=== PATIENT | female | born 1975 | race Caucasian/White ===

== ENCOUNTER 2025-07-02 14:41 | Outpatient (CLI) | payer OTHER, SELFPAY ==
--- OUTSIDE RECORDS SUMMARY | 2025-06-02 08:05 | XMS_ITS | Continuity of Care Document ---
Author Organization [employer] [place] Address [address] [place] [address] Phone Care Team Providers Care Irs Agent Name Role Phone Ting Pulido DO Unavailable Unavailable Allergies, Adverse Reactions, Alerts Substance Reaction Status Criticality No Known Allergies Active No Inform ation Medications Medication Instructions Dosage Effective Dates (start - stop) Status Comments Lantus U-100 Insulin 100 unit/mL subcutaneous solution inject 20 units by subcutaneous route daily in the evening - Active Probiotic 10 billion cell capsule spray 1 Capsule by Oral route every day 1 Capsule - Active Trulicity 4.5 mg/0.5 mL subcutaneous pen injector inject (4.5MG) by subcutaneous route every week 4.5 MG - Active metformin ER 500 mg tablet,extended release 24 hr take 1 tablet by oral route 2 times every day with the evening meal 500 MG - Active DexMetis [employer] G7 Sensor device check glucose levels QID before meals and at bedtime; change sensor every 10 days rotating sites - Active Humalog KwikPen (U-100) Insulin 100 unit/mL subcutaneous inject insulin TID per sliding scale - Active omeprazole 40 mg capsule,delayed release take 1 capsule by oral route every day before a meal 40 MG - Active Procedures Procedure Date MED LIST DOCD IN [facility] OFFICE [id number] MED LIST DOCD IN [facility] OFFICE [id number] GENERAL HEALTH PANEL FERRITIN LEVEL HEMOGLOBIN A1C HGA1C, GLYCO IRON (FE), TOTAL TIBC, & % SATURATION LIPID PANEL MICROALBUMIN, QN (URINE) CREATININE, (U-R) ROUTINE VENIPUNCTURE [place] OFFICE [id number] Brief Emotional/Behavioral A ssessment, With Scoring/Doct, Per Stndrd Instrument OFFICE [id number] Brief Emotional/Behavioral A ssessment, With Scoring/Doct, Per Stndrd Instrument OFFICE [id number] CBC, INC PLATELETS AND DIFFERENTIAL COMPREHEN METABOLIC PANEL CMP CREATINE KINASE, TOTAL (CPK,CK) 024 FERRITIN LEVEL FOLIC ACID (S) (FOLATE) HEMOGLOBIN A1C HGA1C, GLYCO IRON (FE), TOTAL TIBC, & % SATURATION VITAMIN B12 (SERUM) ROUTINE VENIPUNCTURE [place] OFFICE [id number] GENERAL HEALTH PANEL HEMOGLOBIN A1C HGA1C, GLYCO LIPID PANEL MICROALBUMIN, QN (URINE) CREATININE, (U-R) PARATHYROID HORMONE (PTH) URINALYSIS, REFLEX (UA) Brief Emotional/Behavioral A ssessment, With Scoring/Doct, Per Stndrd Instrument Brief Emotional/Behavioral A ssessment, With Scoring/Doct, Per Stndrd Instrument ROUTINE VENIPUNCTURE [place] OFFICE [id number] Advance Directives Directive Yes / No Effective Date File Name Life Support Not Answered N/A N/A Intubation Not Answered N/A N/A Antibiotics Not Answered N/A N/A IV Fluid Support Not Answered N/A N/A Tube Feed Not Answered N/A N/A Other Directive N/A N/A WARNING:The information contained in this section is historical and is provided for information only and does not constitute a legal document or any assurance that the information is still accurate. Please verify the information with the sam of the legal document before using it for clinical purposes. Encounters Encounter Description Practice Location Reason(s) For Visit Diagnoses Date Provider Providers Copied on Encounter [facility], [address], [place], [place], [id number] , tel: [phone] [facility] No Information 5 Tess Maguire. [address] [place] [address], [id number] , [place]. tel: [phone] OFFICE NXOEW-KWZ-GS TAILED [facility], [address], [place], [place], [id number] , tel: [phone] [facility] 4-6 mo appt (chief complaint)C hronic Conditions (chief complaint)c hronic conditions (chief complaint) Body mass index [BMI] 27.0-27.9, adultType 2 diabetes mellitus with unspecified complicationsSupra ventricular tachycardia, unspecifiedEncount er for screening mammogram for malignant neoplasm of breast 5 Sergo Garcia. [address] [place] [address], [id number] , [place]. tel: [phone] Referring Provider: Ting Min, [address] [place] [address], [address] . tel:[phone] OFFICE LDTUO-KWZ-KU PANDED [facility], [address], [place], [place], [address] , tel: [phone] [facility] acute visit (chief complaint) Body mass index [BMI] 26.0-26.9, adultTachycardiaDi zziness 5 Sergo Garcia. [address] [place] [address], [id number] , [place]. tel: [phone] Referring Provider: Ting Min, [address] [place] [address], [address] . tel:[phone] [facility], [address], [place], [place], [address] , [place] tel: [phone] [facility] No Information 0 Kyrie Juarez. [address] [address], [place], [place], [id number] , [place]. tel: [phone] Referring Provider: Ting Min, [address] [place] [address], [address] . tel:[phone] OFFICE SZJRD-EJH-CN [facility], [address], [place], [place], [id number] , [place] tel: [phone] [facility] 4 month appt (chief complaint)C hronic Conditions (chief complaint) Body mass index [BMI] 26.0-26.9, adultType 2 diabetes mellitus with unspecified complicationsLong term (current) use of insulinHyperlipide marissa, unspecifiedMajor depressive disorder, recurrent, mildAnemia, unspecified Mar-0 5 Tess Maguire. [address] [place] [address], [id number] , [place]. tel: [phone] Referring Provider: Ting Min, [address] [place] [address], [address] . tel:[phone] OFFICE JUCUA-QBT-FF [facility], [address], [place], [place], [id number] , [place] tel: [phone] [facility] 2 month appt (chief complaint)C hronic Conditions (chief complaint) Body mass index [BMI] 28.0-28.9, adultType 2 diabetes mellitus with unspecified complicationsHyper lipidemia, unspecifiedLong term (current) use of insulinMajor depressive disorder, recurrent, mild Nov-0 6- 4 Tess Maguire. [address] [place] [address], [id number] , [place]. tel: [phone] Referring Provider: Ting Min, [address] [place] [address], [address] . tel:[phone] [facility] [address], [place], [place], [id number] , [place] tel: [phone] [facility] 3 month check up (chief complaint)C hronic Conditions (chief complaint) Body mass index [BMI] 29.0-29.9, adultType 2 diabetes mellitus with unspecified complicationsMajor depressive disorder, recurrent, mild Sep-- 4 Sergo Garcia. [address] [place] [address], [id number] , . tel: [phone] Referring Provider: Ting Min, [address] [place] [address], [address] . tel:[phone] [facility], [address], [place], [place], [address] , [place] tel: [phone] [facility] No Information 4 Kyrie Juarez. [address], [id number] , . tel: [phone] Referring Provider: Ting Min, [address] [place] [address], [address] . tel:[phone] OFFICE [id number]-XWJ-CV [facility], [address], [place], [place], [id number] , [place] tel: [phone] [facility] f/u (chief complaint)C hronic Conditions (chief complaint)c hronic conditions (chief complaint) Type 2 diabetes mellitus with unspecified complicationsLong term (current) use of insulinHyperlipide marissa, unspecifiedType 2 diabetes mellitus with diabetic autonomic (poly)neuropathyAn emia, unspecified 4 Tess Maguire. [address] [place] [address], [id number] , [place]. tel: [phone] Referring Provider: Ting Min, [address] [place] [address], [address] . tel:[phone] [facility], [address], [place], [place], [address] , tel: [phone] [facility] No Information 4 Tess Maguire. [address] [place] [address], [id number] , [place]. tel: [phone] [facility], [address], [place], [place], [address] , tel: [phone] [facility] No Information 4 Kyrie Bryantn. [address] [facility], [address] [address], [place], [place], [id number] , . tel: [phone] Referring Provider: Radha Trotter, [address] [place] [address], [address] . tel:[phone] OFFICE [id number]-WHW-WW MP-MED [facility], [address], [place], [place], [id number] , tel: [phone] [facility] new pt (chief complaint) Body mass index [BMI] 25.0-25.9, adultDiabetic gastroparesis associated with type 2 diabetes mellitusGastropare sisOSA (obstructive sleep apnea)GERD without esophagitisMDD (major depressive disorder), recurrent episode, mildChronic kidney disease, unspecified CKD stageEncounter for screening mammogram for malignant neoplasm of breast 4 Sergo Garcia. [address] [place] [address], [id number] , [place]. tel: [phone] Referring Provider: Ting Min, [address] [place] [address], [address] . tel:[phone] Family History Family Member Type Diagnosis Age At Onset No Information Immunizations Vaccine Date Status Comments Fluzone Quad, split virus, 0 .5mL dosage administered Source: Other Provid er Pneumococcal polysaccharide PPV23 adminis tered Source: Other Provider Tdap administered Source: Other P rian Payers Payer name Insurance type Covered constitution party ID Authoriza tion(s) No Information Social History Type Description Quantity Date Captured Comments Alcohol Use Details Unknown Caffeine Use Details Unknown Tobacco Use Status No Information Smoking Status No Information Sex Female Sexual Orientation Straight or heterosexual Gender Identity Female Chief Complaint And Reason For Visit No Information Reason For Referral Reason For Referral No Information Plan Of Treatment Date Type Action Status Goal Dietary management education , guidance, and counseling completed Goal Dietary management education , guidance, and counseling completed Goal Dietary management education , guidance, and counseling completed Goal Dietary management education , guidance, and counseling completed Goal Dietary management education , guidance, and counseling completed Goal Dietary management education , guidance, and counseling completed Goal Dietary management education , guidance, and counseling completed Referral Ordered: 24 to 48 hour Holter electrocardiographic monitoring Appointment date/timeframe: 04/04/2025 ordered Referral Referred To: [facility] [facility] [address] [place], [id number] Ordered: SCREENING MAMMOGRAM (CAD) Appointment date/timeframe: 02/16/2024 ordered History Of Present Illness Encounter Date Complaint History Of Prese nt Illness chronic conditions *See Chronic Conditions HPI Chronic Conditions *See Chronic Conditions HPI 4-6 mo appt 4-6 mo appt:emilybo w hurts off and onneeds a referral for a cardio scheduled 05/31/25 (Dr. 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 Patient denies significant exertion associated with HR elevations. has not been taking her metoprololher body just feels weird like something is going on sometimes are a little dizzydenies syncope, palpations, chest pain, and dyspneaPast appt: n/aFuture appt: n/aAdvance directive: doesn't want forms 4 month appt pt due for:PAP - pt denies recentEye exam - pt [id number] visits:Endocrinology - FebFuture appt:Eye exam - pt unsureVaccinations due:COVID - pt refuseCOVID booster - pt refuse Flu - pt refuseTD - pt denies recentOutstanding referrals:n/ain addition to medication list pt also taking OTC Cinsulin and O-pos supplement.pt reports intermittent right elbow x 3 days. pt states pain radiates towards her right shoulder blade. pt described pain as crampy, and achy Chronic Conditions *See Chronic Conditions HPI Chronic Conditions *See Chronic Conditions HPI 2 month appt pt due for:Adv c are planning - pt does not have LW/POA - pt interested on informationEye exam - Dr Ramirez - pt unsure of datePAP - pt denies [id number] visits:Endocrinology - pt unsure of dateFuture appt:n/aVaccinations due:COVID - pt refusesCOVID booster - pt refusesFlu - pt refusesTDAP - pt denies recentOutstanding referrals:n/a Chronic Conditions *See Chronic Conditions HPI 3 month check up f/u pt due for:Adv c are planning - pt does not have LW/POA - pt not interested on information at this momentPAP - pt verbalized she had one done w/ her last PCP about 1 year agoEye exam - Dr Ramirez - December/JanuaryRecent visits:Endocrinology - Last WednesdayFuture appt:n/aVaccinations due:COVID booster - pt refusesTD - pt denies recentOutstanding referrals:n/a Chronic Conditions *See Chronic Conditions HPI chronic conditions new pt Patient presents to office to establish care as a new patient.Previous PCP: PCP at [facility] patient is and lives at home with her and 2 of 3 children. She has 2 daughters and a son. 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 RobertsOptometrist: Dr. Angelo OV: 2 or 3 months agoAllergies: NKDADiagnoses: DM: diagnosed 1997 after 3rd . h/o gestational DM with all 3 pregnancies. uncontrolled. states last A1c was 10. is compliant with medications but does not check glucose unless she feels bad. is drinking 4-5 sodas a day and eating 1 meals with snacks. states last PCP ordered dexcom but did not complete necessary paperworkGastroparesis: d/t uncontrolled DM. managed by Dr. Roberts. is scheduled for upcoming CT and gastric emptying study. takes dicyclomine sparingly as needed. reports intermittent nausea and vomiting. denies worsening issues after starting Trulicity 1 year agoCKD: has seen Dr. Reyes but states he advised she does not need to continue to follow; had OV this year; denies use of NSAIDs but states she doesn't drink water d/t not liking the tasteOSA: has CPAP but does not wear itMDD: states she is managing with without medications; has taken Prozac and Wellbutrin in the past. denies suicidal and homicidal ideationGERD: managed with pantoprazole. denies dysphagiaSurgeries: D&C 1996, 3 c-sections, breast reductionFamily hxMother: living, lung cancer, depressionFather: d/t MVABrother: DMBrother: prediabetesSister: ovarian cancer w/ metastasis to lungsSister: healthyScreenings:Colorectal screening - 2023 w/ Dr. Ganmmogram: duePap: 2022 - normal w/ PCP. Eye exam - 2022 w/ Dr. Ramierz. wears glassesImmunizations: states she thinks she is up-to-date on everything"Tobacco: noAlcohol: noCaffeine: yes, 4-5 sodasExercise: no Functional Status Date Functional Assessmen t No Information Instructions Date Instruction Additional Infor wu We will send a refer ral to Dr. Duarte for your upcoming appointment Related to Supraventricular tachycardia, unspecified [facility].Follow-up as scheduled Related to Type 2 diabetes mellitus with unspecified complications Giving encouragement to exercise Related to Body mass index (BMI) 27.0-27.9, adult Disease process Dietary management e ducation, guidance, and counseling Related to Body mass index (BMI) 27.0-27.9, adult I will send an order for a heart monitor to [facility] to further evaluate your heart rate and rhythm. Continue to hold your metoprolol until we get results. Please call us if you develop chest pain, palpitations, or shortness of breath.Work on staying well-hydrated Related to Tachycardia as stated above Related to Dizzi ness Dietary management e ducation, guidance, and counseling Related to Body mass index (BMI) 26.0-26.9, adult Giving encouragement to exercise Related to Body mass index (BMI) 26.0-26.9, adult blood counts will be checked Rel ated to Anemia, unspecified continue with the cu rrent medication call me if you feel your depression is getting worse Related to Major depressive disorder, recurrent, mild see above Related to USP (current) use of insulin continue with the cu rrent medicationlevels will be checked Related to Hyperlipidemia, unspecified continue with the cu rrent medicationkeep scheduled follow up with Endocrine Related to Type 2 diabetes mellitus with unspecified complications Prescribed activity/ exercise education Related to Body mass index (BMI) 26.0-26.9, adult Disease process Dietary management e ducation, guidance, and counseling Related to Body mass index (BMI) 26.0-26.9, adult i am going to increa se the fluoxetine to 20 mg dailyI sent a new script [facility] Related to Major depressive disorder, recurrent, mild see above Related to USP (current) use of insulin keep scheduled follo w up with the endocrinologistI will review the old recordsdiscuss the GI side effects you are having with them regarding the metformin and the trulciitydiscuss the farxiga option at your next appointment Related to Type 2 diabetes mellitus with unspecified complications levels will be check edcontinue with the current medication Related to Hyperlipidemia, unspecified Disease process Dietary management e ducation, guidance, and counseling Related to Body mass index (BMI) 28.0-28.9, adult Prescribed activity/ exercise education Related to Body mass index (BMI) 28.0-28.9, adult I sent prescription for Prozac 10 mg which she will take once a day to the pharmacy.Please call the office if your depression worsens prior to next appointment.Follow-up again in 2 months we can evaluate how you are doing with restarting your medication Related to Major depressive disorder, recurrent, mild I sent the increased dose of Trulicity to your pharmacy.Follow up with Dr. Az Menendez as scheduled Related to Type 2 diabetes mellitus with unspecified complications Giving encouragement to exercise Related to Body mass index (BMI) 29.0-29.9, adult Dietary management e ducation, guidance, and counseling Related to Body mass index (BMI) 29.0-29.9, adult Disease process labs will be checked Related to Anemia, unspecified keep scheduled follo w up with endocrine Related to Type 2 diabetes mellitus with unspecified complications continue with the cu rrent medicationlevels will be checked Related to Hyperlipidemia, unspecified continue with the cu rrent insulin regimen Related to terminologist (current) use of insulin I will get the resul ts from Dr. Roberts try smaller meals throughout the Geraldine will discuss with your endocrine regarding the trulicity Related to Type 2 diabetes mellitus with diabetic autonomic (poly)neuropathy Dietary management e ducation, guidance, and counseling Related to Body mass index (BMI) 26.0-26.9, adult Prescribed activity/ exercise education Related to Body mass index (BMI) 26.0-26.9, adult Disease process We will check kidney function today.I do recommend working your water intake even need to add flavoring in order to do so.Continue to avoid NSAIDs such as Advil, Aleve, ibuprofen, and naproxen Related to Chronic kidney disease, unspecified CKD stage You report this is m anaged without medication.Please call us if the depression worsens Related to MDD (major depressive disorder), recurrent episode, mild Continue your pantop razole as prescribed Related to GERD without esophagitis I do recommend using your CPAP to manage this Related to JOSÉ MANUEL (obstructive sleep apnea) This is being manage d by Dr. Roberts.We will request records Related to Gastroparesis Continue your medica tions as prescribed.I will send refills of the metformin, Lantus, and Trulicity to the pharmacy.We will check your A1c again today.Eye exam is up-to-date; We will request a copy from Dr. Ramirez's office.Work on decreasing iron for that intake and increasing your water intake.I will order a Dexcom to see if we can get this approved Related to Diabetic gastroparesis associated with type 2 diabetes mellitus Dietary management e ducation, guidance, and counseling Related to Body mass index (BMI) 25.0-25.9, adult Giving encouragement to exercise Related to Body mass index (BMI) 25.0-25.9, adult Assessments Type Assessment Date No Information Patient Care Teams Name Effective Dates (start - stop) Status Members No Information
--- NOTE | 2025-07-02 14:58 | ECHO_ITS ---
Patient Info Name: Miguelina Conde Age: 50 years : 1975 Gender: Female Ht: 60 in Wt: 145 lbs BSA: 1.69 m2 HR: 66 bpm BP: 90 / 76 mmHg Heart Rhythm: Sinus Rhythm Technical Quality: Good Exam Date: 07/02/2025 3:10 PM Patient Status: O Admit Date: 07/02/2025 Exam Type: CA echo doppler color flow Complete two-dimensional, color flow and Doppler transthoracic echocardiogram is performed. Spinning Lathe Operator: Jocelin Morgan Attending Provider: Daniel Duarte DO Summary 1. Complete two-dimensional, color flow and Doppler transthoracic echocardiogram is performed. 2. Left ventricular chamber dimension is normal. 3. Left ventricular systolic function is mildly globally reduced, estimated at 45-50. 4. The left ventricular diastolic function is grade I diastolic dysfunction. 5. E/e' 6 is not elevated. 6. There is trace mitral valve regurgitation. 7. There is trace tricuspid valve regurgitation. 8. No pulmonary hypertension, estimated pulmonary arterial systolic pressure is 21 mmHg. 9. There is trace pulmonic regurgitation. Left Ventricle E/e' 6 is not elevated. Left ventricular chamber dimension is normal. Left ventricular systolic function is mildly globally reduced, estimated at 45-50. The left ventricular diastolic function is grade I diastolic dysfunction. Right Ventricle Right ventricular chamber dimension is normal. Right ventricular systolic function is normal and with normal TAPSE 2.3 cm. Left Atria Left atrial chamber dimension is normal. Right Atria Right atrial chamber dimension is normal. Aortic Valve The aortic valve is trileaflet. There is no aortic valve stenosis. There is no aortic valve regurgitation. Pulmonic Valve There is trace pulmonic regurgitation. Mitral Valve There is no mitral valve stenosis. There is trace mitral valve regurgitation. Tricuspid Valve There is trace tricuspid valve regurgitation. No pulmonary hypertension, estimated pulmonary arterial systolic pressure is 21 mmHg. Pericardium/Pleural There is no pericardial effusion. Inferior Vena Cava Normal inferior vena cava with >50% collapse upon inspiration consistent with normal right atrial pressure, 5 mmHg. Aorta The aortic root size at the sinus of Valsalva is normal. Left Ventricular Outflow Tract Name Value Normal LVOT 2D LVOT Diameter 2.0 cm LVOT Doppler LVOT Peak Velocity 68 cm/s LVOT Peak Gradient 2 mmHg LVOT Mean Gradient 1 mmHg LVOT VTI 11 cm LVOT VTI/AV VTI Ratio 0.7 LVOT Stroke Volume 34 ml LVOT CO 3.0 l/min LVOT CI 1.8 l/min/m2 Pulmonic Valve Name Value Normal RVOT Doppler RVOT Peak Velocity 62 cm/s RVOT Peak Gradient 2 mmHg PV Doppler PV Peak Velocity 68 cm/s PV Peak Gradient 2 mmHg Mitral Valve Name Value Normal MV Diastolic Function MV E Peak Velocity 69 cm/s MV A Peak Velocity 94 cm/s MV E/A 0.7 MV Decel Time (PW) 197 ms MV Annular TDI MV E/e' (Septal) 6.6 MV E/e' (Lateral) 7.2 MV E/e' (Average) 6.9 Tricuspid Valve Name Value Normal TV Regurgitation Doppler TR Peak Velocity 201 cm/s TR Peak Gradient 16 mmHg Estimated PAP/RSVP RA Pressure 5 mmHg <=5 PA Systolic Pressure 21 mmHg <36 RV Systolic Pressure 21 mmHg <36 TV Annular TDI TV Lateral Radha s' Velocity 9.2 cm/s >=9.5 Aorta Name Value Normal Ascending Aorta Ao Root Diameter (MM) 2.8 cm Ao Root Diam Index (MM) 1.6 cm/m2 Aortic Valve Name Value Normal AV Doppler AV Peak Velocity 97 cm/s AV Peak Gradient 4 mmHg AV Mean Gradient 2 mmHg AV VTI 15 cm AV Area (Cont Eq VTI) 2.2 cm2 >=3.0 AV Area (Cont Eq Polo) 2.1 cm2 AV DI (Polo) 0.70 AV Regurgitation 2D LVOT Area 3.0 cm2 Ventricles Name Value Normal LV Dimensions 2D/MM IVS Diastolic Thickness (2D) 0.9 cm 0.6-1.0 LVID Diastole (2D) 4.7 cm 3.8-5.2 LVIW Diastolic Thickness (2D) 0.9 cm 0.6-0.9 LVID Systole (2D) 3.7 cm 2.2-3.5 LVOT Diameter 2.0 cm LV Mass (2D Cubed) 144.80 g 67.00-162.00 LV Mass Index (2D Cubed) 86 g/m2 43-95 Relative Wall Thickness (2D) 0.40 <=0.42 LV Fractional Shortening/Ejection Fraction 2D/MM LV Fractional Shortening (2D) 23 % 27-45 LV EF (2D Teichholz) 46 % LV Diastolic Volume (4C MOD) 105 ml LV EF (4C MOD) 43 % LV Diastolic Volume (2C MOD) 105 ml LV EF (2C MOD) 44 % LV Diastolic Volume (BP MOD) 107 ml 46-106 LV Diastolic Volume Index (BP MOD) 64 ml/m2 29-61 LV Systolic Volume (BP MOD) 60 ml 14-42 LV Systolic Volume Index (BP MOD) 35 ml/m2 8-24 LV EF (BP MOD) 44 % 54-74 LV Diastolic Length (4C) 8.4 cm LV Systolic Length (4C) 7.7 cm LV Stroke Volume (4C MOD) 45 ml Atria Name Value Normal LA Dimensions LA Dimension (MM) 3.1 cm 2.7-3.8 LA Volume (4C A-L) 46 ml LA Volume (BP A-L) 40 ml RA Dimensions RA Area (4C) 14.8 cm2 <=18.0 Report Signatures
--- OUTSIDE RECORDS SUMMARY | 2025-07-02 14:58 | XMS_ITS | Clinical Summary ---
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 Name Role Phone Ting Pulido DO Primary Care Provider [phone] Allergies No known active allergies Medications FLUoxetine (PROzac) 40 mg capsule Take 1 capsule (40 mg total) by mouth daily Taking 10mg 07/19/[address] (PROTONIX) 40 mg EC tablet Take 1 tablet (40 mg total) by mouth 2 (two) times a day 10/07/20 22 Active Sure Comfort Pen Needle 31 gauge x 02/23 needle 09/08/20 22 Active famotidine (PEPCID) 40 mg tablet 07/21/20 23 Active metoprolol XL (TOPROL-XL) 25 mg extended release tablet 07/26/20 23 Active dicyclomine (BENTYL) 10 mg capsule TAKE 1 CAPSULE BY MOUTH FOUR TIMES DAILY NEEDED FOR ABDOMINAL PAIN 11/22/19 24 Active lidocaine jelly (XYLOCAINE) 2 % Apply topically 2 (two) times a day 30 mL 01/19/20 24 Active OMEPRAZOLE ORAL Take 40 mg by mouth 07/03/20 24 025 Active lancets (freestyle) 28 gauge misc Active FreeStyle Lite Strips stripIndications:T ype 2 diabetes mellitus with stage 3b chronic kidney disease, with long-term current use of insulin (HCC) Use to test glucose TID with sensor failure, when off sensor or with abnormal sensor readings 200 strip 3 04/20/20 25 Active metFORMIN XR (GLUCOPHAGE XR) 500 mg 24 hr tabletIndications: Type 2 diabetes mellitus with stage 3b chronic kidney disease, with long-term current use of insulin ([facility]) Take 2 tablets (1,000 mg total) by mouth daily with breakfast 180 tablet 04/24/20 Active LANTUS 100 unit/mL (3 mL) pen for injectionIndicatio ns:Type 2 diabetes mellitus with stage 3b chronic kidney disease, with long-term current use of insulin ([facility]) Inject 20 units at bedtime 30 mL 04/24/20 Active dulaglutide (TRULICITY) 4.5 mg/0.5 mL pen injectorIndication s:Type 2 diabetes mellitus with stage 3b chronic kidney disease, with long-term current use of insulin ([facility]) Inject 0.5 mL (4.5 mg total) under the skin every 7 days 6 mL 04/24/20 Active Dexcom G7 Sensor deviceIndications: Type 2 diabetes mellitus with stage 3b chronic kidney disease, with long-term current use of insulin ([facility]) Use to continually monitor glucose, change sensor every 10 days 9 each 04/24/20 Active atorvastatin (LIPITOR) 20 mg tabletIndications: Type 2 diabetes mellitus with stage 3b chronic kidney disease, with long-term current use of insulin ([facility]),Mixed hyperlipidemia Take 1 tablet (20 mg total) by mouth daily 90 tablet 04/24/20 Active cholecalciferol (VITAMIN D-3) 2000 unit tabletIndications: Vitamin D deficiency Take 1 tablet (2,000 Units total) by mouth daily 90 tablet 04/24/20 Active Active Problems Problem Noted Date Diagnosed Date Vitamin D deficiency 07/17/2024 Type 2 diabetes mellitus wit h stage 3b chronic kidney disease, with long-term current use of insulin 02/20/2024 Migraine headache 01/13/2024 Overview (01/13/2024): Pt reports good results with the maxalt but does not like the taste of the medicine Labial cyst 01/13/2024 JOSÉ MANUEL (obstructive sleep apnea) 11/03/2022 Assessment & Plan (11/03/2022 11:57 AM APPLIED RESEARCHER): The patient diagnosed with obstructive sleep apnea in 2015 and her CPAP unit is set at 7 cm water pressure. I will send an order over for new supplies to [facility] and the patient will follow-up with me in 3 months. Irritable bowel syndrome 04/06/2021 Overview (06/15/2023): diarrhea predominant, started on xifaxan by GI Diabetic retinopathy 12/27/2020 Overview (06/15/2023): Mild nonproliferative diabetic retinopathy without macular edema, left eye on 11/14/20. Negative exam in 2022. Renal osteodystrophy 09/22/2020 Overview (06/15/2023): follows with Dr. Dickey Diabetic nephropathy associnoni mack with type 2 diabetes mellitus 08/19/2020 Essential hypertension 08/19/2020 Stage 3b chronic kidney disease 08/19/2020 Diabetic gastroparesis 08/02/2020 Allergic rhinitis 07/18/2020 Gastroesophageal reflux disease 07/18/2020 Hiatal hernia 07/18/2020 Hyperlipidemia 07/18/2020 Insomnia 07/18/2020 Mixed anxiety and depressive disorder 07/18/2020 Chronic kidney disease 07/18/2020 Resolved Problems Problem Noted Date Diagnosed Date Resolved Date Diabetes mellitus 08/03/2001 02/20/2024 Overview (06/15/2023): type 2 Encounters Date Type Department Care Team Description 04/24/2025 11:20 AM CDT Telemedicine [facility] Medicine Endocrinology Metabolism and Lipid [facility] Medical Office Building [address] [place] [address] Michael Watson MD Type 2 diabetes mellitus with stage 3b chronic kidney disease, with long-term current use of insulin (HCC); Vitamin D deficiency; Mixed hyperlipidemia from Last 3 Months Immunizations Immunization Administration Dates Next Due Hep A / Hep B 01/07/2017, 6,07/01/2016,01/07 Influenza, Quadrivalent, Jennifer l Culture-based MDCK, Preservative Free, Antibiotic Free, Intramuscular 09/01/2017,08/26/2015 Influenza, Quadrivalent, Spl it, Intramuscular 07/18/2021,07/31/2016,08/28/2014 Influenza, Quadrivalent, Spl it, Preservative Free, Intramuscular 07/18/2020,09/01/2017,08/26/2015 Influenza, Split 07/31/2009,10/06/2007 Influenza, Trivalent, Cell Culture-based MDCK, Preservative Free, Antibiotic Free, Intramuscular 09/01/2017,08/26/2015 Influenza, Trivalent, IM (MDV) 10/17/2012 MMR 08/10/2017,07/01/2016 PPD TEST 03/13/2019,08/10/2017 Pneumococcal Polysaccharide PPV23 09/23/2020,04/2013,04/16/2009 Tdap 07/22/2023,12/29/2012 Surgical History Surgery Date Site/Laterality Comments REDUCTION MAMMAPLASTY SECTION Medical History Medical History Date Comments Diabetes mellitus (HCC) Kidney disease Family History Medical History Relation Name Comments Cataracts Mother Lung cancer Mother Ovarian cancer Sister Breast cancer Neg Hx Uterine cancer Neg Hx Relation Name Status Comments Father Mother Alive Sister Social History Tobacco Use Types Packs/Day Years Used Date Smoking Tobacco: Never Smokeless Tobacco: Never AUDIT-C Answer Date Recorded Q1: How often do you have a drink containing alcohol? Never 11/27/2024 Q2: How many drinks containi ng alcohol do you have on a typical day when you are drinking? Patient does not drink Q3: How often do you have si x or more drinks on one occasion? Never 11/27/2024 Comments No Sex and Gender Information Value Date Recorded Sex Assigned at Not on file Legal Sex Female 2:37 PM APPLIED RESEARCHER Gender Identity Not on file Sexual Orientation Not on file Obstetrics History Para Term AB IAB SAB Ectopic Multiple Livin g Live Births 10 4 4 6 6 4 4 Date Outcome GA Total Labor Labor/2nd/3rd Weight Sex Type Anes PTL Shanae A1 A5 Name Clin Term CS-LT ranv Living Term CS-LT ranv Living Term CS-LT ranv Living Term Vag-S pont Living SAB SAB SAB SAB SAB SAB Last Filed Vital Signs Vital Sign Reading Time Taken Comments Blood Pressure 103/69 11/27/2024 3:27 PM APPLIED RESEARCHER Pulse 100 11/27/2024 3:27 PM APPLIED RESEARCHER Temperature 37.1 C (98.7 F) 11/27/2024 3:27 PM APPLIED RESEARCHER Respiratory Rate 18 11/03/2022 11:42 AM APPLIED RESEARCHER Oxygen Saturation 98% 07/17/2024 2:58 PM CDT Inhaled Oxygen Concentration - - Weight 62.4 kg (137 lb 9.6 oz) 11/27/2024 3:27 P M APPLIED RESEARCHER Height 152.4 cm (5') 11/27/2024 3:27 PM APPLIED RESEARCHER Body Mass Index 26.87 11/27/2024 3:27 PM APPLIED RESEARCHER Plan of Treatment Health Maintenance Due Date Last Done Comments Cervical Cancer Screening 1975 Colon Cancer Screening-Colonoscopy 1975 Depression Screening 1975 Hepatitis C Screening 1975 Dilated Eye Exam 1975 Foot Exam 1975 Regular Well Visit/Exam 18-64 1993 Pneumococcal vaccine <65 (2 of 2 - PCV) 09/23/2021 09/23/2020, 10/17/2012, 04/16/2009 Breast Cancer Screening-Mammogram 02/08/2025 02/09/2024, 02/03/2024, 02/03/2024 Hemoglobin A1C 05/27/2025 11/27/2024, 10/04/2024, 04/11/2024, Additional history exists Influenza Vaccine (#1) 2025 1, 07/18/2020, 09/01/2017, Additional history exists Zoster Vaccine (1 of 2) 2025 Albumin Creatinine Ratio, Urine 03/28/2026 5, 04/21/2024 Lipid Panel 03/28/2026 03/28/2025, 04/21/2024 eGFR 03/28/2026 03/28/2025, 08/0 03/2024, 04/21/2024 DTaP/Tdap/Td Vaccine (3 - Td or Tdap) 07/22/2033 07/22/2023, 12/29/2012 Hepatitis B Screening Completed 01/07/2017 , 07/31/2016, 07/01/2016, Additional history exists Procedures Procedure Name Priority Date/Time Associated Diagnosis Comments COMPREHENSIVE METABOLIC PANEL Routine 03/28/2025 12:13 PM CDT Type 2 diabetes mellitus with stage 3b chronic kidney disease, with long-term current use of insulin (HCC) LIPID PANEL Routine 03/28/2025 12:13 PM CDT Type 2 diabetes mellitus with stage 3b chronic kidney disease, with long-term current use of insulin (HCC) ALBUMIN CREATININE RATIO, URINE Routine 03/28/2025 12:13 PM CDT Type 2 diabetes mellitus with stage 3b chronic kidney disease, with long-term current use of insulin (HCC) POCT HEMOGLOBIN A1C Routine 11/27/2024 3 :34 PM APPLIED RESEARCHER Type 2 diabetes mellitus with stage 3b chronic kidney disease, with long-term current use of insulin (HCC) from Last 3 Months or Most Recently Relevant to Health Maintenance Results * Albumin Creatinine Ratio, Urine (03/28/2025 12:13 PM CDT) Creatinine ur 73.4 Not Estab. mg/dL [facility] - 01 Microalbumin, ur 3.5 Not Estab. ug/mL [facility] - 01 Microalbumin/cre at ratio 5 0 - 29 mg/g creat [facility] - 01 Comment: Normal: 0 - 29 Moderately increased: 30 - 300 Severely increased: >300 Urine 03/28/2025 12:1 3 PM CDT 03/28/2025 Narrative [facility] - 03/29/2025 3:10 PM CDT Performed at: [address] [place] [id number] Manufacturing Mechanic: Slade Saab PhD, Phone: [phone] us Michael Watson MD LAB URINE ORDERABLES Final R esult [facility] - 01 * (ABNORMAL) Lipid panel (03/28/2025 12:13 PM CDT) Cholesterol 198 100 - 199 mg/dL [facility] - 01 Triglycerides 323(H) 0 - 149 mg/dL [facility] - 01 HDL Cholesterol 40 >39 mg/dL [facility] - 01 VLDL 55(H) 5 - 40 mg/dL [facility] - 01 LDL, calculated 103(H) 0 - 99 mg/dL [facility] - 01 Blood 03/28/2025 12:1 3 PM CDT 03/28/2025 Narrative [facility] - 03/29/2025 7:09 AM CDT Performed at: 01 - [address] [id number] Manufacturing Mechanic: Slade Saab PhD, Phone: [phone] us Michael Watson MD LAB BLOOD ORDERABLES Final R esult [facility] - 01 * (ABNORMAL) Comprehensive metabolic panel (03/28/2025 12:13 PM CDT) [facility] Glucose 114(H) 70 - 99 mg/dL [facility] - 01 BUN 6 6 - 24 mg/dL [facility] - 01 Creatinine, Serum 1.08(H) 0.57 - 1.00 mg/dL [facility] - 01 eGFR 63 >59 mL/min/1.7 3 [facility] - 01 BUN/creat ratio 6(L) 9 - 23 [facility] - 01 Sodium 136 134 - 144 mmol/L [facility] - 01 Potassium, sr 3.9 3.5 - 5.2 mmol/L [facility] - 01 Chloride 96 96 - 106 mmol/L [facility] - 01 CO2 26 20 - 29 mmol/L [facility] - 01 Calcium 8.7 8.7 - 10.2 mg/dL [facility] - 01 Protein, sr 6.4 6.0 - 8.5 g/dL [facility] - 01 Albumin 4.1 3.9 - 4.9 g/dL [facility] - 01 Globulin, Total 2.3 1.5 - 4.5 g/dL [facility] - 01 Bilirubin, Total 0.4 0.0 - 1.2 mg/dL [facility] - 01 Alk phos 124(H) 44 - 121 IU/L [facility] - 01 AST 16 0 - 40 IU/L [facility] - 01 ALT 7 0 - 32 IU/L [facility] - 01 Blood 03/28/2025 12:1 3 PM CDT 03/28/2025 Narrative [facility] - 03/29/2025 7:09 AM CDT Performed at: - [address] [id number] Manufacturing Mechanic: Slade Saab PhD, Phone: [phone] Michael Watson MD LAB BLOOD ORDERABLES Final R esult [facility] - 01 * POCT hemoglobin A1c (11/27/2024 3:34 PM APPLIED RESEARCHER) [facility] Signature Hemoglobin A1C, POC 6.1 4.0 - 5.6 % Capillary blood 11/27/2024 3 :34 PM APPLIED RESEARCHER Michael Watson MD POINT OF CARE TEST ORDERABLE S Final Result from Last 3 Months or Most Recently Relevant to Health Maintenance Insurance [facility] Care Teams Amusement Machine Mechanic Relationship Specialty Start Date End Date Ting Pulido DO PCP - General Internal Medicine 08/30/24
--- OUTSIDE RECORDS SUMMARY | 2025-07-02 14:59 | XMS_ITS | Clinical Summary ---
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 Gender Identity Not on file Sexual Orientation Not on file Plan of Treatment Health Maintenance Due Date Last Done Comments Hepatitis C Virus (HCV) Screening 1975 TdaP Immunization 1975 Hepatitis B Immunization (1 of 3 - 19+ 3-dose series) 1994 Pap Smear 1996 Cervical Cancer Screening (CCS) 2005 HPV/Cotest 2005 Cologuard 2020 Colonoscopy 2020 Colorectal Cancer Screening 2020 Immunochemical Fecal Occult Blood 2020 SARS-COV-2 Immunization ( season) 2024 Influenza Immunization (#1) 2025 07/18/2020 Respiratory Syncytial Virus (RSV) Immunization (Adult) (1 - 1-dose 75+ series) 2050 Pneumococcal Immunization Combined Aged Out 2019 No longer eligible based on patient's age to complete this topic Human Papillomavirus (HPV) Immunization Aged Out No longer eligible b ased on patient's age to complete this topic Meningococcal Immunization (ACWY) Aged Out No longer eligible based on patient's age to complete this topic Rotavirus Immunization Aged Out No lo nger eligible based on patient's age to complete this topic
--- OUTSIDE RECORDS SUMMARY | 2025-07-02 14:59 | XMS_ITS | Patient Health Record ---
Author Organization Pola Barker MD [facility] Address [address] [place] [phone] Support Name Relationship Address Phone Miguelina Conde Guarantor Unknown [phone] Reason For Referral No Information Medications Medication SIG (Take, Route, Frequency, Duration) Notes Start Date End Date Status B Complex - Orally Active Magnesium Oxide 400 MG 2 tablets Orally Once a day Active Pravastatin Sodium 40 MG 1 tablet Orally Once a day Active Levemir FlexPen Acti ve NexIUM 20 MG 1 capsule Orally Once a day Active Vitamin D3 2000 UNIT 2 capsules Orally O nce a day Active Losartan Potassium 25 MG half tablet Ora lly at bedtime Active Janumet XR 50-1000 MG 1 tablet with even ing meal Orally twice a day Active Social History Tobacco Use: Social History Observation Description Date Details (start date - stop date) Never Smoker NA - NA Tobacco Use/Smoking Question Answer Notes Are you a nonsmoker Alcohol Screen (Audit-C) Question Answer Notes Did you have a drink containing alcohol in the p ast year? No Points 0 Problems Problem Type SNOMED Code ICD Code Onset Dates Problem Status W/U Status Risk Notes Problem Hyperlipidemia (78392430) Hyperlipidemia, unspecified (E78.5) Active confirmed Problem Type II diabetes mellitus without complication (242349611) Type 2 diabetes mellitus without complications (E11.9) Active confirmed Problem Allergic rhinitis (31332744) Allergic rhinitis, unspecified (J30.9) Active confirmed Problem Gastro-esophageal reflux disease without esophagitis (936329463) Gastro-esophagea l reflux disease without esophagitis (K21.9) Active confirmed Problem Low back pain (104184602) Low back pain, unspecified back pain laterality, unspecified chronicity, with sciatica presence unspecified (M54.5) Active confirmed Plan Of Treatment No Information Insurance Providers Payer Name Payer Address Payer Phone Subscriber Number Group Number Insured Name Patient Relationship to Insured Coverage Start Date Coverage End Date [facility] [address] [place] [address] [id number] Luciano Conde Spouse - patient is the spouse of the insured Medical (General) History Medical History History ICD Code Type 2 diabetes mellitus without complic ations E11.9 Low back pain M54.5 hx of 3 sections Allergic rhinitis, unspecified J30.9 Gastro-esophageal reflux disease without esophagitis K21.9 Hyperlipidemia, unspecified E78.5
== END 2025-07-02 14:42 | disposition home or self-care (01) ==
PROVIDERS: PCP Internal Medicine; Visit Provider Internal Medicine Cardiovascular Disease
DX: R06.09 Other forms of dyspnea (principal)
CPT/HCPCS: 93306

== ENCOUNTER 2025-07-20 09:33 | Outpatient (CLI) | payer OTHER, SELFPAY ==
--- NOTE | ~2025-07-20 | NM_ITS ---
EXAMINATION: NM dar stress w perfusion DATE: 07/20/2025 12:46 INDICATION: Other forms of dyspnea TECHNIQUE: Rest images were obtained following intravenous administration of 11 mCi Tc99m tetrofosmin (Myoview). The patient was infused intravenously with Lexiscan (Regadenoson). Then, 33 mCi Tc99m tetrofosmin (Myoview) was administered intravenously, and stress images were obtained, initially in the supine position with repeat post stress images obtained in the prone position. Data was reconstructed into short axis and horizontal and vertical long axis SPECT images. Gated SPECT images were also obtained. COMPARISON: None. FINDINGS: There is likely artifactual decreased activity at the apical, apical lateral, apical anterior and apical septal, mid anterior and mid anterolateral segments on the rest and stress imaging obtained in the supine position which normalizes on the post stress imaging obtained in the prone position. There is no definite perfusion abnormality on the post-rest prone imaging to suggest ischemia or infarction. There is normal left ventricular chamber size, wall motion and ejection fraction. Left ventricular ejection fraction measures 52%. IMPRESSION: 1. Normal myocardial perfusion at rest and during stress. 2. Left ventricular ejection fraction measuring >70%. Reviewed, dictated and finalized at location A.
--- NOTE | 2025-07-20 09:45 | EST_ITS ---
Patient Info Name: Miguelina Conde Age: 50 years : 1975 Gender: Female Ht: 60 in Wt: 145 lbs BSA: 1.69 m2 HR: 88 bpm BP: 122 / 86 mmHg Exam Date: 07/20/2025 9:45 AM Patient Status: O Admit Date: 07/20/2025 Exam Type: CA stress dar w NM A regadenoson stress test was performed. Staff Referring Physician: Daniel Duarte DO Attending Provider: Daniel Duarte DO Exercise Technologist: Ce Gongora Exercise Physician: Daniel Duarte DO Summary 1. 1. Negative lexiscan stress test for ischemic ST changes by ECG criteria. 2. 2. Stable hemodynamics throughout the test. 3. 3. Nuclear scan to follow and will be reported separately. Please correlate with it. 4. 4. Patient informed of the above results. Protocol: Lexiscan Stress ECG Details Stage: REST Duration (min): 0 min : 42 sec HR (bpm): 87 SBP (mmHg): 122 DBP (mmHg): 83 Stage: REST Duration (min): 5 min : 13 sec HR (bpm): 94 SBP (mmHg): 122 DBP (mmHg): 83 Stage: STAGE 1 Duration (min): 1 min : 0 sec HR (bpm): 125 SBP (mmHg): 122 DBP (mmHg): 83 Stage: RECOVERY Duration (min): 1 min : 0 sec HR (bpm): 111 SBP (mmHg): 170 DBP (mmHg): 70 Stage: RECOVERY Duration (min): 2 min : 0 sec HR (bpm): 120 SBP (mmHg): 170 DBP (mmHg): 70 Stage: RECOVERY Duration (min): 3 min : 0 sec HR (bpm): 116 SBP (mmHg): 134 DBP (mmHg): 76 Stage: RECOVERY Duration (min): 4 min : 0 sec HR (bpm): 109 SBP (mmHg): 134 DBP (mmHg): 76 Stage: RECOVERY Duration (min): 4 min : 19 sec HR (bpm): 100 SBP (mmHg): 134 DBP (mmHg): 76 Rest HR: 94 bpm Peak HR: 131 bpm Rest Sys BP: 122 mmHg Peak Sys BP: 170 mmHg Max Pred HR: 170 bpm % Max Pred HR: 77 % Target HR: 145 bpm Max RPP: 22,270 bpm*mmHg Termination Reason: Completed protocol Cardiac Symptoms: Shortness of breath, Flushed, stomach discomfort Total Time: 1 min : 0 sec Rest Last BP: 83 mmHg Peak Last BP: 70 mmHg Total Dose: 0.4 mg Resting ECG Sinus rhythm. Stress ECG No ST changes. Arrhythmias None. Report Signatures
== END 2025-07-20 09:34 | disposition home or self-care (01) ==
PROVIDERS: PCP Internal Medicine; Visit Provider Internal Medicine Cardiovascular Disease
DX: R06.09 Other forms of dyspnea (principal); I51.9 Heart disease, unspecified
CPT/HCPCS: 78452; 93017; A9502; J2785